=== PATIENT | female | born 1995 | race Caucasian/White ===

== ENCOUNTER → 2024-11-06 | Outpatient (CLI) | payer OTHER ==
[2024-11-06 10:08] LABS: PLATELET COUNT (AUTO) 316 K/uL (150-450); RED BLOOD CELL COUNT(AUTO) 4.75 MIL/uL (4.00-5.20); RED CELL DISTRIBUTION WIDTH 13.2 % (11.5-14.5); WHITE BLOOD COUNT (AUTO) 6.8 K/uL (4.5-11.0)
== END | disposition home or self-care (01) ==
LOC: MSR 09:43
PROVIDERS: ATTEND Chiropractor
DX: M79.89 Other specified soft tissue disorders (principal); M25.511 Pain in right shoulder
CPT/HCPCS: 85025